=== PATIENT | male | born 1985 | race Two or more races ===

== ENCOUNTER 2019-01-06 17:55 | Emergency (ER) | payer BC ==
[~2019-01-06] VITALS: Ht 172.7 cm; Wt 80.0 kg
[2019-01-06 17:57] VITALS: BP 148/81
[2019-01-06] MEDS ORDERED: HYDROcodone/APAP 5/325 TABLET PO ONE (18:30)
[2019-01-06] MEDS ORDERED: COLCHICINE 0.6 MG TABLET PO ONE (18:30)
[2019-01-06] MEDS ORDERED: COLCHICINE 0.6 MG TABLET PO SCH (18:30)
[2019-01-06] MEDS ORDERED: HYDROcodone/APAP 5/325 TABLET ONE (18:51)
[2019-01-06] MEDS ORDERED: COLCHICINE 0.6 MG TABLET ONE (18:53)
--- NOTE | 2019-01-06 19:28 | NUR ---
Patient/Caregiver given discharge instructions and they have confirmed that they understand the instructions. Patient ambulatory with steady gait.
== END 2019-01-06 19:29 | disposition home or self-care (01) ==
LOC: ED 19:09
DX: M25.571 Pain in right ankle and joints of right foot (principal); M10.071 Idiopathic gout, right ankle and foot
CPT/HCPCS: 99283